=== PATIENT | male | born 1975 | race Two or more races ===

== ENCOUNTER → 2018-11-06 | Outpatient (CLI) | payer BC ==
[2018-11-06 16:59] LABS: BASO # 0.1 10^3/uL (0.0-0.2); BASO % 0.7 % (0.0-1.0); EOS # 0.4 10^3/uL (0.0-0.50); EOS % 3.6 % (0.0-3.0); HEMATOCRIT 47.9 % (42.0-52.0); HEMOGLOBIN 15.3 g/dl (13.5-17.5); LYMPH # 3.3 10^3/uL (1.5-4.5); LYMPH % 31.4 % (24.0-44.0); MEAN CORPUSCULAR HEMOGLOBIN 27.8 pg (27.0-33.0); MEAN CORPUSCULAR HGB CONC 31.9 g/dl (32.0-36.5); MEAN CORPUSCULAR VOLUME 86.9 fl (80.0-96.0); MONO # 1.1 10^3/uL (0.0-0.8); MONO % 10.4 % (0.0-5.0); NEUTROPHILS # 5.7 10^3/uL (1.8-7.7); NEUTROPHILS % 53.3 % (36.0-66.0); PLATELET COUNT, AUTOMATED 311 10^3/uL (150-450); RED BLOOD COUNT 5.51 10^6/uL (4.30-6.10); WHITE BLOOD COUNT 10.6 10^3/uL (4.0-10.0)
[2018-11-06 17:04] LABS: ALBUMIN 4.1 GM/DL (3.2-5.2); BLOOD UREA NITROGEN 13 MG/DL (7-18); CALCIUM LEVEL 8.7 MG/DL (8.5-10.1); CARBON DIOXIDE LEVEL 27 MEQ/L (21-32); CHLORIDE LEVEL 107 MEQ/L (98-107); CREATININE FOR GFR 0.95 MG/DL (0.70-1.30); GLOMERULAR FILTRATION RATE > 60.0 (>60); GLUCOSE, FASTING 69 MG/DL (70-100); PHOSPHORUS LEVEL 3.2 MG/DL (2.5-4.9); SODIUM LEVEL 142 MEQ/L (136-145); URIC ACID 6.1 MG/DL (3.5-7.2)
== END ==
LOC: M WUC 12:53
PROVIDERS: ATTEND Physician Assistant
DX: M79.671 Pain in right foot (principal)

== ENCOUNTER → 2019-03-11 | Outpatient (REF) | payer BC ==
[2019-03-11 17:08] LABS: BILIRUBIN,DIRECT 0.1 MG/DL (0.0-0.2); BILIRUBIN,TOTAL 0.5 MG/DL (0.2-1.0); CHOLESTEROL RISK RATIO 5.125 (<5); TOTAL PROTEIN 7.1 GM/DL (6.4-8.2)
== END ==
LOC: M SFHCCLAY 09:29
PROVIDERS: ATTEND Family Medicine
DX: Z13.220 Encounter for screening for lipoid disorders (principal); Z68.38 Body mass index [BMI] 38.0-38.9, adult

== ENCOUNTER → 2019-10-31 | Outpatient (CLI) | payer BC ==
--- NOTE | 2019-10-31 15:50 | REP ---
Digital diagnostic bilateral mammography with CAD, 3-D tomography, and focused left breast sonography: History: Clear to yellow discharge left breast times 1 month. Nipple sensitivity. No comparison imaging. Findings: Routine projections of each breast are augmented by magnified focal spot compression subareolar images of the left breast. Left breast views demonstrate a 5 mm well-circumscribed nodular opacity with a linear structure extending toward the nipple just lateral to the plane of the nipple. 3-D tomography images show no additional abnormality. No other mammographic abnormality is seen on either side. Sonographic findings: Focused left breast sonography is performed in the retroareolar region. There is a 2 mm hypoechoic area immediately beneath the nipple consistent with a small duct like structure or tiny cyst. This is not felt to correspond to mammographic opacity. No suspicious sonographic finding is seen. No other sonographic evidence of a lesion is seen. Impression: BIRADS 4: BI-RADS/ACR category 4 mammogram. Suspicious Abnormality - biopsy should be considered. BIRADS category 4 suspicious left breast imaging. 5 mm nodule in the left breast retroareolar region merits histologic sampling. No sonographic correlate. Stereotactic needle biopsy suggested. This mammogram was interpreted with the aid of an FDA-approved computer-aided detection system. The patient states he had a clinical breast exam in October 2019. The patient letter being requested is M4 male patient.
== END ==
LOC: M WHC 12:27
PROVIDERS: ATTEND Family Medicine
DX: N64.52 Nipple discharge (principal); N64.4 Mastodynia
CPT/HCPCS: 76641; 77066; G0279

== ENCOUNTER → 2019-11-11 | Outpatient (CLI) | payer BC ==
[~2019-11-11] MED LIST: LIDOCAINE 1% MDV 20ML VIAL As Ordered ONE
[2019-11-11 11:30] VITALS: BP 139/77
--- NOTE | 2019-11-11 11:52 | REP ---
POSTBIOPSY MAMMOGRAM LEFT BREAST: ML and CC views of the left breast performed following stereotactic biopsy of a small nodule in the upper outer quadrant of the left breast anteriorly. A metallic clip is seen at the site of the nodule, with mild surrounding postbiopsy hemorrhage. Electronically Signed by Ruslan Arguello MD 11/11/2019 02:46 P
--- NOTE | 2019-11-11 16:51 | REP ---
STEREOTACTIC LEFT BREAST BIOPSY The procedure was performed under the direct supervision of Dr. Arguello The patient has a history of a 5 mm well circumscribed nodular opacity with linear structure extending toward the nipple just lateral to the plane of the nipple seen on a previous mammogram dated 10/31/2019. The risks and benefits of the procedure were explained to the patient and informed consent was obtained. A craniocaudal approach was utilized. The nodule was localized using stereotactic mammographic guidance. 1% Xylocaine was used as a local anesthetic. A 10 gauge, suction assisted Mammotome needle was inserted and 6 core biopsy samples were obtained. A marker clip was placed at the biopsy site. The patient tolerated the procedure well and there were no immediate complications. After the appropriate amount of monitored convalescence, the patient was discharged from the department. Electronically Signed by JOSSELYN Sharp 11/11/2019 04:35 P Electronically Signed by Ruslan Arguello MD 11/11/2019 04:43 P
== END ==
LOC: M IRPRO 10:02
PROVIDERS: ATTEND Surgery
DX: N64.52 Nipple discharge (principal); N63.20 Unspecified lump in the left breast, unspecified quadrant

== ENCOUNTER → 2019-12-21 | Outpatient (CLI) | payer BC ==
[~2019-12-21] MED LIST changes: -LIDOCAINE 1% MDV 20ML VIAL As Ordered ONE; +ULTR50TA8 PO
== END ==
LOC: M LABSMTC 07:57
PROVIDERS: ATTEND Anesthesiology
DX: Z01.818 Encounter for other preprocedural examination (principal); Z11.59 Encounter for screening for other viral diseases

== ENCOUNTER 2019-12-24 07:56 | Day surgery (SDC) | payer BC ==
[~2019-12-24] VITALS: Ht 177.8 cm; Wt 123.8 kg
[~2019-12-24 07:56] MED LIST changes: +LIDOCAINE 1% MDV 20ML VIAL SQ PRN; +LIDOCAINE 2% 100MG/5ML SDV (FOR ANES.) As Ordered ONE; +LR 1,000 ML IV ONE; +MIDAZOLAM INJ 2MG/2ML VIAL (J2250 PER 1MG) As Ordered ONE; +ONDANSETRON 4MG/2ML VIAL As Ordered ONE; +ROCURONIUM BROMIDE 50 MG/5 ML VIAL As Ordered ONE; +SUGAMMADEX SODIUM 500 MG/5 ML VIAL (BRIDION) As Ordered ONE; -ULTR50TA8 PO; +ceFAZolin SOD 2 GM in IV 1 EA IV ONE; +dexameTHASONE 4 MG/ML 1ML VIAL (J1100 PER 1MG) As Ordered ONE; +fentaNYL 100 MCG/2 ML INJECTION (J3010) As Ordered ONE; +propofoL 200 MG/20 ML VIAL As Ordered ONE
[2019-12-24] MEDS ORDERED: HEPARIN SOD (PORCINE) 5000UNITS/ML VIAL (J1644 PER 1000UNITS) As Ordered ONE (08:28)
[2019-12-24] MEDS ORDERED: ceFAZolin SOD 2 GM in IV 1 EA IV ONE (08:30)
[2019-12-24] MEDS ORDERED: HEPARIN SOD (PORCINE) 5000UNITS/ML VIAL (J1644 PER 1000UNITS) SQ ONE (08:45)
[2019-12-24] MEDS ORDERED: LIDOCAINE 1% MDV 20ML VIAL As Ordered ONE (09:21)
[2019-12-24] MEDS ORDERED: BUPIVACAINE HCL 0.25% 10ML VIAL As Ordered ONE (09:22)
[2019-12-24] MEDS ORDERED: ePHEDrine SULFATE 25 MG/5 ML(5MG/ML) SYRINGE As Ordered ONE (09:57)
[2019-12-24] MEDS ORDERED: PHENYLephrine HCL 500 MCG/5 ML (100MCG/ML) SYRINGE (J2370) As Ordered ONE (09:57)
[2019-12-24] MEDS ORDERED: ACETAMINOPHEN 1000MG 100ML IV BTL (OFIRMEV) (J0131 PER 10MG) As Ordered ONE (09:57)
[2019-12-24] MEDS ORDERED: dexameTHASONE 4 MG/ML 1ML VIAL (J1100 PER 1MG) As Ordered ONE (10:32)
--- NOTE | 2019-12-24 10:58 | REP ---
FOCUSED LEFT BREAST SONOGRAPHY: HISTORY: Sonographic guidance. Wire localization. FINDINGS: Sonographic guidance is provided to Dr. Li who performed a wire localization procedure under ultrasound guidance. Electronically Signed by Jonathan Kraft MD 12/24/2019 12:03 P
[2019-12-24] MEDS ORDERED: LIDOCAINE 2% 100MG/5ML SDV (FOR ANES.) As Ordered ONE (11:09)
[2019-12-24] MEDS ORDERED: ULTR50TA8 PO ×2 (11:29)
[2019-12-24] MEDS ORDERED: ONDANSETRON 4MG/2ML VIAL IV PRN (11:45)
[2019-12-24] MEDS ORDERED: KETOROLAC 30 MG/ML 1ML VIAL IV PRN (11:45)
[2019-12-24] MEDS ORDERED: MORPHINE 2 MG/ML 1ML VIAL (J2270) IV PRN (11:45)
[2019-12-24] MEDS ORDERED: LR 1,000 ML IV SCH (11:45)
[2019-12-24] MEDS ORDERED: fentaNYL 100 MCG/2 ML INJECTION (J3010) IV PRN (11:45)
[2019-12-24] MEDS ORDERED: oxyCODONE 5MG TAB PO PRN (11:45)
[2019-12-24] MEDS ORDERED: METOCLOPRAMIDE INJ 10MG/2ML VIAL (J2765 PER 1) IV PRN (11:45)
[2019-12-24 13:20] VITALS: BP 130/81
--- NOTE | 2019-12-24 13:39 | REP ---
LEFT BREAST SPECIMEN RADIOGRAPHY: Single view. HISTORY: Excisional biopsy left breast with intraoperative wire localization. Comparison mammography November 11, 2027. Comparison mammogram from October 31, 2019 is also reviewed. FINDINGS: Specimen radiography demonstrates needle wire localization device adjacent to the previously placed needle biopsy marker clip within the specimen. Electronically Signed by Jonathan Kraft MD 12/24/2019 04:34 P
--- NOTE | 2019-12-24 18:13 | ROOPDOC ---
[facility] Report Of Operation Report of Operation DATE OF PROCEDURE: 12/24/19 PREPROCEDURE DIAGNOSES: Left nipple discharge and intraductal papilloma. POSTPROCEDURE DIAGNOSES: Nipple discharge and intraductal papilloma. PROCEDURE: Left breast excisional biopsy. SURGEON: Vianey North REAR ADMIRAL: ANESTHESIA: Gen. anesthesia was used. ESTIMATED BLOOD LOSS: Approximately 5 mL. COMPLICATIONS: None. REMARKS: Hydromark clip and wire seen in the specimen. DESCRIPTION OF PROCEDURE: INDICATIONS: Mr. Arriola is a 44-year-old man who was found to have a suspicious left nipple discharge. Mammogram was done and a suspicious nodule was identified. Stereotactic biopsy of left suspicious nodule was done and showed intraductal papilloma. Patient was offered excisional biopsy. He was medically cleared for surgery by her primary care doctor. Risks and possible complications of surgical procedure including bleeding, infection and injury to surrounding structures were explained to the patient and he wished to proceed. Consent was signed. My initials were placed on the operative site. Subcutaneous injection of 5000 units of heparin was done in Preop. DETAILS: Patient was taken to the operating room and placed on the operating room table. A sign in was called stating patients name, date of and the procedure to be done. Preoperative antibiotics were infused. Smooth induction of general anesthesia was done. Patients hands were extended on arm rests. Care was taken not to over extend the arms. Procedure was started with left breast intraop wire localization. Appropriate time out was done and patients name, date of , and the procedure to be done were confirmed. Left breast was cleaned by me. Intraoperative ultrasound was used again to confirm location of the Hydromark clip. Location of the clip was marked on the skin as well. 21 G K[place]ans Breast Lesion Localization Needle was used to place 25 cm wire through the lesion. The wire was placed through the clip and the end of the wire was passed a centimeter deep. The images were captured confirming adequate placement of the localizing wire. Hand Rigger assisted with the wire placement. Next, patients left breast and axilla were prepped and draped in the usual fashion. Care was taken not to displace the wire. Appropriate time out was done again prior second part of the procedure. Patients name, date of , and the procedure to be done were confirmed. Next, local anesthetic using 1% lidocaine and 0.25 % Marcaine 50/50 mix was injected at the site of planned periareolar incision. The incision was made with the scalpel. Subcutaneous skin flaps were raised and the guide wire was carefully pulled into the wound. Dissection was carries along the wire until the previously marked on the skin area of target lesion location was encountered. At this point, wider excision of the tissue surrounding the wire was done. The Hydromark clip was identified in the tissue with intraoperative hockey stick ultrasound probe. The end of the wire was identified with palpation. The excisional biopsy specimen was carefully removed from the breast keeping its proper orientation and moved to the back table where margins were marked with the surgical inking kit following the standard colors recommendations. Specimen was then placed on the grid and placed in [employer] Specimen Imaging System. The image revealed the wire and the Hydromark in the specimen. The specimen was labeled with patients name and left excisional biopsy and sent to pathology. Next, the wound was irrigated thoroughly and adequate hemostasis was assured. Additional local anesthetic was injected into surrounding tissues. space was approximated with 3-0 Vicryl. The dermis was closed with 3-0 Monocryl and skin was closed with 4-0 Monocryl. Surgical glue was placed over the incision. Patient emerged from the anesthesia without any problems. Fluffs were placed over the operative site and patients chest was wrapped snuggly in the NOLBERTO wrap. Sponge and instrument counts were done and were correct. Patient tolerated procedure well and was taken to recovery unit in stable condition. VIANEY NORTH DO December 24, 2019 18:13
== END 2019-12-24 13:38 | disposition home or self-care (01) ==
LOC: M SDC 07:56
PROVIDERS: ATTEND Surgery
DX: D24.2 Benign neoplasm of left breast (principal); N64.1 Fat necrosis of breast; K21.9 Gastro-esophageal reflux disease without esophagitis; Z87.891 Personal history of nicotine dependence; Z79.899 Other long term (current) drug therapy
CPT/HCPCS: 19125; 36415; 76942; 86850; 86900; 86901; 88305; J0131; J0690; J1100; J1644; J2250; J2270; J2370; J2405; J3010

== ENCOUNTER → 2022-09-21 | Outpatient (REF) | payer BC ==
[~2022-09-21] MED LIST changes: -LIDOCAINE 1% MDV 20ML VIAL SQ PRN; -LIDOCAINE 2% 100MG/5ML SDV (FOR ANES.) As Ordered ONE; -LR 1,000 ML IV ONE; -MIDAZOLAM INJ 2MG/2ML VIAL (J2250 PER 1MG) As Ordered ONE; -ONDANSETRON 4MG/2ML VIAL As Ordered ONE; -ROCURONIUM BROMIDE 50 MG/5 ML VIAL As Ordered ONE; -SUGAMMADEX SODIUM 500 MG/5 ML VIAL (BRIDION) As Ordered ONE; +ULTR50TA8 PO; -ceFAZolin SOD 2 GM in IV 1 EA IV ONE; -dexameTHASONE 4 MG/ML 1ML VIAL (J1100 PER 1MG) As Ordered ONE; -fentaNYL 100 MCG/2 ML INJECTION (J3010) As Ordered ONE; -propofoL 200 MG/20 ML VIAL As Ordered ONE
[2022-09-21 18:17] LABS: BLOOD UREA NITROGEN 15 MG/DL (9-23); CALCIUM LEVEL 8.7 MG/DL (8.5-10.1); CARBON DIOXIDE LEVEL 29 MMOL/L (20-31); CHLORIDE LEVEL 105 MMOL/L (98-107); CHOLESTEROL LEVEL 175 MG/DL (<200); CHOLESTEROL RISK RATIO 4.27 (<5); CREATININE FOR GFR 1.03 MG/DL (0.70-1.30); GLOMERULAR FILTRATION RATE > 60.0 (>60); GLUCOSE, FASTING 90 MG/DL (60-100); HDL CHOLESTEROL 40.9 MG/DL (>40); LDL CHOLESTEROL 89.5 MG/DL (<100); NON-HDL-C 134 MG/DL; POTASSIUM SERUM 4.2 MMOL/L (3.5-5.1); SODIUM LEVEL 141 MMOL/L (136-145); TRIGLYCERIDES LEVEL 223 MG/DL (<150)
== END ==
LOC: M SFHCCLAY 14:26
PROVIDERS: ATTEND Nurse Practitioner Family
DX: K21.9 Gastro-esophageal reflux disease without esophagitis (principal); Z13.220 Encounter for screening for lipoid disorders

== ENCOUNTER → 2023-06-06 | Outpatient (CLI) | payer BC | LOC: M WUC 15:13 | PROVIDERS: ATTEND Physician Assistant | DX: M25.522 Pain in left elbow (principal) ==

== ENCOUNTER → 2024-09-02 | Outpatient (CLI) | payer BC | LOC: M WUC 14:42 | PROVIDERS: ATTEND Physician Assistant | DX: S93.402A Sprain of unspecified ligament of left ankle, initial encounter (principal); S93.692A Other sprain of left foot, initial encounter; X58.XXXA Exposure to other specified factors, initial encounter; Y92.9 Unspecified place or not applicable ==

== ENCOUNTER → 2024-10-04 | Outpatient (REF) | payer BC ==
[2024-10-04 19:30] LABS: ALBUMIN 3.9 G/DL (3.2-5.2); ALKALINE PHOSPHATASE 96 U/L (40-129); ALT/SGPT 25 U/L (7.0-40); AST/SGOT 20 U/L (<34); BILIRUBIN,TOTAL 0.8 MG/DL (0.3-1.2); BLOOD UREA NITROGEN 16 MG/DL (9-23); CALCIUM LEVEL 9.2 MG/DL (8.5-10.1); CARBON DIOXIDE LEVEL 24 MMOL/L (20-31); CHLORIDE LEVEL 102 MMOL/L (98-107); CHOLESTEROL LEVEL 174 MG/DL (<200); CHOLESTEROL RISK RATIO 3.25 (<5); CREATININE FOR GFR 0.93 MG/DL (0.70-1.30); GLOMERULAR FILTRATION RATE > 60.0 (>56); GLUCOSE, FASTING 77 MG/DL (60-100); HDL CHOLESTEROL 53.4 MG/DL (>40); LDL CHOLESTEROL 107.6 MG/DL (<100); NON-HDL-C 120.6 MG/DL; PSA SCREENING 1.02 NG/ML (< 4.00); SODIUM LEVEL 141 MMOL/L (136-145); TOTAL PROTEIN 6.9 G/DL (5.7-8.2); TRIGLYCERIDES LEVEL 65 MG/DL (<150)
== END ==
LOC: M SFHCCLAY 10:00
PROVIDERS: ATTEND Nurse Practitioner Family
DX: Z00.00 Encounter for general adult medical examination without abnormal findings (principal); K21.9 Gastro-esophageal reflux disease without esophagitis; Z13.220 Encounter for screening for lipoid disorders; Z12.5 Encounter for screening for malignant neoplasm of prostate

== ENCOUNTER → 2025-04-22 | Outpatient (CLI) | payer BC | LOC: M WUC 09:15 | PROVIDERS: ATTEND Nurse Practitioner Family | DX: R07.89 Other chest pain (principal) ==